=== PATIENT | male | born 1990 | race African-American/Black ===

== ENCOUNTER 2017-09-20 08:11 | Emergency (ER) | payer OTHER ==
[~2017-09-20] VITALS: Ht 170.2 cm; Wt 127.0 kg
[2017-09-20 08:11] VITALS: BP_SYST 165
--- NOTE | 2017-09-20 08:11 | NUR ---
BROUGHT BACK TO BED #5 AND TRIAGED. REPORT GIVEN TO JANET
--- NOTE | 2017-09-20 08:22 | NUR ---
Pt is awake, alert and oriented. Pt states that 2 weeks ago he kicked a kick boxing bag incorrectly and had pain in his right ramos. Current pain 08/16. Small bump noted to right ramos, no increased pain during palpatation. Will continue to monitor.
--- NOTE | 2017-09-20 08:56 | NUR ---
ER at bedside examining patient.
--- NOTE | 2017-09-20 09:41 | NUR ---
Patient given written and verbal discharge instructions and verbalizes understanding. ER MD discussed with patient the results and treatment provided. Patient in stable condition. ID arm band removed. NO Rx given. Patient educated on pain management and to follow up with PMD. Pain Scale 0/10. Opportunity for questions provided and answered.
[2017-09-20 09:42] VITALS: BP_SYST 129
== END 2017-09-20 09:41 | disposition home or self-care (01) ==
LOC: SED 08:11
DX: S80.11XA Contusion of right lower leg, initial encounter (principal); W22.8XXA Striking against or struck by other objects, initial encounter; Y93.89 Activity, other specified; Y92.89 Other specified places as the place of occurrence of the external cause; Y99.8 Other external cause status
CPT/HCPCS: 99283